=== PATIENT | female | born 1950 | race Caucasian/White ===

== ENCOUNTER 2021-03-01 16:40 | Observation (INO) | payer OTHER ==
[~2021-03-01] VITALS: Ht 167.6 cm; Wt 113.3 kg
[~2021-03-01 16:40] MED LIST: ACTO15TA6 PO; ASPI325T5 PO; CLOP75TA2 PO; GABA250S PO; GLUC10TA3 PO; IBUP80TA PO; LISI20TA3 PO; LOPR50TA PO; MECL12.575 PO; METF850T PO; NORV2TAB PO; POLY1POW4 PO; PRAV40TA PO; TRAZ100T2 PO
[2021-03-01] MEDS ORDERED: methylPREDNISolone 125MG 2ML VIAL IV ONE (16:55)
[2021-03-01] MEDS: COMBIVENT RESPIMAT 100-20MCG INHALER 4GM INH SCH ×3 (17:03→17:57)
[2021-03-01] MEDS ORDERED: FUROSEMIDE 40MG/4ML VIAL (J1940) IV ONE (17:20)
--- NOTE | 2021-03-01 17:30 | REP ---
INDICATION: DYSPNEA/COUGH. COMPARISON: Portable chest dated 10/06/2012. TECHNIQUE: Portable AP chest with the patient upright. FINDINGS: There are sternotomy wires as an interval change. Cardiac size is enlarged and has increased. There is diffuse bilateral interstitial coarsening appearing worsened from the comparison study. There are no focal infiltrates or pleural effusions. IMPRESSION: Worsening interstitial coarsening. This is nonspecific and could represent progressive interstitial lung disease or interstitial infiltrates. Cardiomegaly that has increased. Sternotomy wires, not present previously. <Electronically signed by Jono Stark > 03/01/21 [id number]
[2021-03-01 17:39] LABS: BASO # 0.1 10^3/uL (0.0-0.2); BASO % 0.7 % (0.0-1.0); HEMATOCRIT 34.3 % (36.0-47.0); HEMOGLOBIN 10.5 g/dl (12.0-15.5); LYMPH # 1.2 10^3/uL (1.5-5.0); LYMPH % 13.7 % (24.0-44.0); MEAN CORPUSCULAR HEMOGLOBIN 28.8 pg (27.0-33.0); MEAN CORPUSCULAR HGB CONC 30.6 g/dl (32.0-36.5); MONO # 0.5 10^3/uL (0.0-0.8); MONO % 5.9 % (2.0-8.0); NEUTROPHILS # 6.9 10^3/uL (1.5-8.5); NEUTROPHILS % 79.4 % (36.0-66.0); PLATELET COUNT, AUTOMATED 199 10^3/uL (150-450); RED BLOOD COUNT 3.65 10^6/uL (4.00-5.40); WHITE BLOOD COUNT 8.7 10^3/uL (4.0-10.0)
[2021-03-01] MEDS ORDERED: ATOR80TA59 PO (18:01)
[2021-03-01] MEDS ORDERED: NOVOINJ3 SC (18:01)
[2021-03-01] MEDS ORDERED: LANTINJ4 SC (18:01)
[2021-03-01] MEDS ORDERED: CLOP75TA2 PO (18:01)
[2021-03-01] MEDS ORDERED: ISOS1TAB35 PO (18:01)
[2021-03-01] MEDS ORDERED: FURO40TA2 PO (18:02)
[2021-03-01] MEDS ORDERED: NIFE60TA40 PO (18:02)
[2021-03-01] MEDS ORDERED: LEVO100T5 PO (18:02)
[2021-03-01] MEDS ORDERED: SPIR-10 PO (18:02)
[2021-03-01 18:10] LABS: ALBUMIN 3.8 GM/DL (3.2-5.2); ALT/SGPT 15 U/L (12-78); BILIRUBIN,DIRECT 0.1 MG/DL (0.0-0.2); BILIRUBIN,TOTAL 0.4 MG/DL (0.2-1.0); CK-MB VALUE MASS 2.6 NG/ML (<3.6); CPK CREATINE PHOSPHOKINASE 89 U/L (26-192); MB/CK RELATIVE INDEX 2.92 (< OR =4); NT-PRO BNP 1902 PG/ML (<125); THYROXINE (T4) 9.9 UG/DL (4.5-12.0); TOTAL PROTEIN 7.6 GM/DL (6.4-8.2); TROPONIN I < 0.02 NG/ML (< 0.10)
[2021-03-01] MEDS ORDERED: ALBU83IN (18:59)
[2021-03-01] MEDS ORDERED: LISI40TA4 PO (18:59)
[2021-03-01] MEDS ORDERED: THEO300T33 PO (18:59)
[2021-03-01] MEDS ORDERED: MECL-136 PO (18:59)
[2021-03-01] MEDS ORDERED: ASPI81TA26 PO (18:59)
[2021-03-01] MEDS ORDERED: TOPR100T PO (18:59)
[2021-03-01] MEDS ORDERED: GABA-282 PO (18:59)
[2021-03-01] MEDS ORDERED: FUROSEMIDE 100MG/10ML VIAL (J1940) IV ONE (19:05)
--- NOTE | 2021-03-01 19:32 | ECGEPIP ---
[facility] - ED Test Date: 2021-03-01 Pat Name: KASSIE CHAN Department: Room: - Gender: Female Recreation Adviser: BRENDEN : 1950 Requested By: Miguelito Nova Order Number: [id number] Reading MD: Miguelito Nova Measurements Intervals [place] Rate: 76 P: 93 GA: 162 QRS: 27 QRSD: 134 T: 77 QT: 406 QTc: 456 Interpretive Statements Normal sinus rhythm Indeterminate axis Right bundle branch block Baseline artifact may affect reading Baseline wandering may affect reading Nonspecific ST T wave changes No prior ECG for comparison Electronically Signed on 03-01-2021 19:32:25 EDT by Miguelito Nova
[2021-03-01] MEDS ORDERED: ACETAMINOPHEN TAB 650MG DOSE (2X325MG) PO PRN (19:40)
[2021-03-01] MEDS ORDERED: MECLIZINE 12.5 MG TAB PO PRN (19:40)
[2021-03-01] MEDS ORDERED: MAALOX 30 ML SUSP *UDC PO PRN (19:40)
[2021-03-01] MEDS ORDERED: MOM 30ML SUSPENSION UDC PO PRN (19:40)
[2021-03-01] MEDS ORDERED: GLUCOSE 4GM CHEW TABLET PO PRN (19:50)
[2021-03-01] MEDS ORDERED: GLUCAGON INJ 1MG VIAL SC PRN (19:50)
[2021-03-01] MEDS ORDERED: DEXTROSE 50% 50 ML SYRINGE IV PRN (19:50)
[2021-03-01] MEDS ORDERED: COMBIVENT RESPIMAT 100-20MCG INHALER 4GM INH PRN (20:00)
--- NOTE | 2021-03-01 20:46 | HPEPDOC ---
[facility] Medical History & Physical Date of Admission Mar 01, 2021 Date of Service: Mar 01, 2021 Attending Physician: TEODORA SHAW MD History and Physical CHIEF COMPLAINT: [70 year old female presents with cc of SOB x4 days] HISTORY OF PRESENT ILLNESS: [This is a 70 year old female with a PMH of CVA with right sided residual weakness, PE, COPD, CHF, CAD s/p CABG, IDDM, dyslipidemia, and HTN who presents to the ER with a complaint of acute onset SOB. Patient states that she is in from out of town for the weekend to visit family but her symptoms began before she bagan traveling. Patient states that her main complaint is extreme shortness of breath even at rest. Patient states that she has had a rapid decline of activity intolerance over the past four days. Patient admits to some chest tightness when she gets particularly short of breath. Patient states that she did not initally think that her symptoms were from her CHF or COPD but rather from a cold because she had some mild congestion for a few days prior to her SOB developing. Patient is on 4L oxygen via nasal canula at home. Patient denies chest pain, cough, sputum production, syncope, abd pain, n/v/d, dysuria, fever, chills Patient briefly placed on bipap while in the ED. As of my examination of patient, she was breathing and having good saturation on her baseline 4L nasal canula.] PAST MEDICAL HISTORY: 1. [See HPI PAST SURGICAL HISTORY: 1. [CABG]. 2. [Hysterectomy]. 3. [Cholecystectomy ]. SOCIAL HISTORY: Marital status: []. Resides in: [Home with ] Employment: [Retired] Tobacco use:[No] ETOH: [No] Illicit drug use: [No] ALLERGIES: Please see below. REVIEW OF SYSTEMS: CONSTITUTIONAL: [See HPI]. HEENT: [See HPI]. CARDIOVASCULAR: [See HPI]. RESPIRATORY: [See HPI]. GASTROINTESTINAL: [See HPI]. GENITOURINARY: [See HPI]. SKIN: [Denies rash]. MUSCULOSKELETAL: [Denies acute joint pain]. NEUROLOGICAL: [See HPI]. HOME MEDICATIONS: Please see below. PHYSICAL EXAMINATION: VITAL SIGNS: Please see below GENERAL APPEARANCE: [This is a 70 year old female who appears in mild distress. She has to catch her breath at times during the interview and exam]. HEENT: [The mass or lesion. EOMI. No scleral icterus or conjunctival erythema. Nares patent. Oral mucosa moist]. CARDIOVASCULAR: [Slightly tachy rate, regular rhythm. No murmurs, rubs or gallops]. LUNGS: [B/l wheezing and crackles heard throughout.]. ABDOMEN: [Soft, non-tender]. MUSCULOSKELETAL: [No joint deformity]. EXTREMITIES: [Lower extremities edematous with mild darkening of the skin b/l. Pulses intact. No clubbing, cyanosis.]. NEUROLOGICAL: [Patient's right sided weakness present. Speech clear. A+Ox3.]. PSYCHIATRIC: [Mood and affect appear appropriate]. LABORATORY DATA: See below. IMAGING: [Chest x-ray: FINDINGS: There are sternotomy wires as an interval change. Cardiac size is enlarged and has increased. There is diffuse bilateral interstitial coarsening appearing worsened from the comparison study. There are no focal infiltrates or pleural effusions. IMPRESSION: Worsening interstitial coarsening. This is nonspecific and could represent progressive interstitial lung disease or interstitial infiltrates. Cardiomegaly that has increased. Sternotomy wires, not present previously.] MICROBIOLOGY: Please see below. ASSESSMENT: [This is a 70 year old female with a pmh of CVA with right sided res idual weakness, PE, COPD, CHF, CAD s/p CABG, IDDM, dyslipidemia, and HTN who presents to the ER with a complaint of acute onset SOB. Patient at the time of my exam seems to be breathing more comfortably after ED administration of bipap, solumedrol and lasix. Patient states to me that her only real complaint is her shortness of breath, and if that were to resolve, she would feel fine. Patient found in the ED to have elevated BNP, no white count, no fevers, no signs of systemic infection ]. . PLAN: 1. [CHF Exacerbation - Perhaps brought on post viral. Patient found negative for COVID in ED. Seems most likely diagnosis at this time as patient appears to be fluid overloaded, has elevated bnp, and main complaint of sob. - Patient received two doses of lasix in the ED, totalling 100mg - Will continue lisinopril, spironolactone, lasix, metoprolol - Patient on four medications and now hospitalized, can consider switching JOSE to arb/sacubitril - continue oxygen therapy - CTA chest, venous duplex of legs ordered - No IVF at this time - Will repeat echo 2. COPD]. - Strong possibility that COPD is adding to patient's sob creating mixed picture. At this time, primary copd exacerbation seems less likely as patient is experiencing no sputum production and is obviously fluid overloaded. - Continue theophylline - Begin combivent - Continue oxygen therapy 3. CVA - continue asa, plavix 4. IDDM - Continue basal insulin - Standard sliding scale while in hospital - consistent carb diet 5.CAD - continue isosorbide 6.Dyslipidemia - continue atorvastatin 7. HTN - Continuing heart failure medications, which also impact blood pressure - Upon admission to ED, patient was found in hypertensive urgency, so will monitor closely - holding at home nicardipine 8. DVT Prophylaxis - heparin ordered PATIENT WISHES TO BE DNI, STILL WANTS COMPRESSIONS Vital Signs Vital Signs Date Time Temp Pulse Resp B/P (MAP) Pulse Ox O2 Delivery O2 Flow Rate FiO2 03/01/21 19:07 85 21 96 Nasal Cannula 4.0 03/01/21 18:54 158/72 (100) 03/01/21 17:26 97.5 03/01/21 17:22 30 Laboratory Data Labs 24H Laboratory Tests 2 03/01/21 16:48: Immature Granulocyte % (Auto) 0.3, Neutrophils (%) (Auto) 79.4H, Lymphocytes (%) (Auto) 13.7L, Monocytes (%) (Auto) 5.9, Eosinophils (%) (Auto) 0.0, Basophils (%) (Auto) 0.7, Neutrophils # (Auto) 6.9, Lymphocytes # (Auto) 1.2L, Monocytes # (Auto) 0.5, Eosinophils # (Auto) 0.0, Basophils # (Auto) 0.1, Nucleated Red Blood Cells % (auto) 0.0, Lactic Acid Level 1.8, Total Bilirubin 0.4, Direct Bilirubin 0.1, Aspartate Amino Transf (AST/SGOT) 14, Alanine Aminotransferase (ALT/SGPT) 15, Alkaline Phosphatase 113, Total Creatine Kinase 89, Creatine Ki nase MB 2.6, Creatine Kinase MB Relative Index 2.92, Troponin I < 0.02, FV-Nqg-N-Type Natriuretic Peptide 1902H, Total Protein 7.6, Albumin 3.8, Albumin/Globulin Ratio 1.0L, Thyroid Stimulating Hormone (TSH) 1.820, Thyroxine (T4) 9.9 03/01/21 17:10: POC pH (Misc Panel) 7.351, POC Base Excess (Misc Panel) 7.0H, POC Saturated Percent O2 (Misc) 93L, POC pO2 (Misc Panel) 74.0L, POC pCO2 (Misc Panel) 58.7H, POC HCO3 (Misc Panel) 32.5H, POC Total CO2 (Misc Panel) 34.0H 03/01/21 17:21: POC Troponin I (Misc) 0.00 03/01/21 17:24: POC Total CO2 (Misc Panel) 32.0H, POC Glucose (Misc Panel) 364H, POC Sodium (Misc Panel) 139, POC Potassium (Misc Panel) 4.6, POC Chloride (Misc Panel) 97L, POC Blood Urea Nitrogen (Misc Panel 23, POC Ionized Calcium (Misc Panel) 4.8, POC Creatinine (Misc Panel) 1.2, POC Hematocrit (Misc Panel) 35.0L 03/01/21 18:53: POC pH (Misc Panel) 7.442, POC Base Excess (Misc Panel) 10.0H, POC Saturated Percent O2 (Misc) 97, POC pO2 (Misc Panel) 85.0, POC pCO2 (Misc Panel) 50.0H, POC HCO3 (Misc Panel) 34.1H, POC Total CO2 (Misc Panel) 36.0H CBC/BMP Laboratory Tests 03/01/21 16:48 Microbiology Microbiology 03/01/21 Blood Culture, Received Pending 03/01/21 Respiratory Virus Panel (PCR) (KY[facility]) - Final, Complete 03/01/21 Blood Culture, Received Pending Home Medications Scheduled Aspirin (Aspirin EC) 81 Mg Tablet.dr, 81 MG PO DAILY Atorvastatin Calcium (Atorvastatin Calcium) 80 Mg Tablet, 80 MG PO QHS Clopidogrel Bisulfate (Clopidogrel) 75 Mg Tablet, 75 MG PO DAILY Furosemide (Furosemide) 40 Mg Tablet, 40 MG PO DAILY Gabapentin (Gabapentin) 300 Mg Capsule, 300 MG PO TID Insulin Aspart (Novolog Flexpen) 100 Unit/1 Ml Insuln.pen, 1 DOSE SC ACHS per sliding scale Insulin Glargine,Hum.rec.anlog (Lantus Solostar) 100 Unit/1 Ml Insuln.pen, 15 UNITS SC QHS Isosorbide Mononitrate (Isosorbide Mononitrate ER) 30 Mg Tab.er.24h, 30 MG PO DAILY Levothyroxine Sodium (Levothyroxine Sodium) 100 Mcg Tablet, 100 MCG PO DAILY Lisinopril (Lisinopril) 40 Mg Tablet, 40 MG PO DAILY Metoprolol Succinate (Toprol Xl) 100 Mg Tab.er.24h, 100 MG PO DAILY Nifedipine (Nifedipine ER) 60 Mg Tablet.er, 60 MG PO DAILY Spironolactone (Spironolactone) 25 Mg Tablet, 12.5 MG PO DAILY Theophylline Anhydrous (Theophylline Anhydrous) 300 Mg Tab.er.12h, 300 MG PO DAILY Scheduled PRN Meclizine HCl (Meclizine HCl) 12.5 Mg Tablet, 12.5 MG PO TID PRN for DIZZINESS Miscellaneous Medications Albuterol Sulf (Albuterol Sulfate) 2.5 Mg/3 Ml Vial.neb, 1 VIAL Allergies Coded Allergies: Penicillins (Verified Allergy, Unknown, 03/01/21) codeine (Verified Allergy, Unknown, 03/01/21) A-FIB/CHADSVASC A-FIB History Current/History of A-Fib/PAF?: No URMILA CALDERON Mar 01, 2021 20:46
[2021-03-01] MEDS: HEPARIN SOD (PORCINE) 5000UNITS/ML 1ML VIAL/SYRINGE SC SCH (20:55)
[2021-03-01] MEDS ORDERED: HumaLOG INSULIN (NovoLOG) PER UNIT SC SCH (21:00)
[2021-03-01] MEDS ORDERED: ATORVASTATIN 20 MG TAB PO SCH (21:00)
[2021-03-01] MEDS ORDERED: LEVEMIR (INSULIN DETEMIR) 1 UNITS/0.01ML SC SCH (21:00)
[2021-03-01] MEDS ORDERED: ISOVUE-370 76% 100ML VIAL As Ordered ONE (21:10)
[2021-03-01] MEDS: DOCUSATE SODIUM 100MG CAPSULE PO SCH (21:57)
[2021-03-01] MEDS: GABAPENTIN 300 MG CAP PO SCH (21:57)
--- NOTE | 2021-03-01 22:19 | REPVR ---
PROCEDURE INFORMATION: Exam: US Duplex Lower Extremity Veins, Bilateral Exam date and time: 03/01/2021 10:00 PM Age: 70 years old Clinical indication: Edema, localized; Lower extremity, bilateral TECHNIQUE: Imaging protocol: Real-time duplex ultrasound of the extremities with 2-D reynolds scale, color Doppler flow and spectral waveform analysis with image documentation. Complete exam focused on the bilateral lower extremity veins. COMPARISON: No relevant prior studies available. FINDINGS: Right deep veins: Unremarkable. The common femoral, femoral and popliteal veins are patent without thrombus. Normal Doppler waveforms. Normal compressibility and/or augmentation response. Right superficial veins: Saphenofemoral junction is patent without thrombus. Left deep veins: Unremarkable. The common femoral, femoral and popliteal veins are patent without thrombus. Normal Doppler waveforms. Normal compressibility and/or augmentation response. Left superficial veins: Saphenofemoral junction is patent without thrombus. Soft tissues: Unremarkable. IMPRESSION: No sonographic evidence of deep vein thrombosis. Electronically signed by: Bam Zeng On 03/01/2021 22:20:02 PM
--- NOTE | 2021-03-01 22:35 | REPVR ---
PROCEDURE INFORMATION: Exam: CTA Chest With Contrast Exam date and time: 03/01/2021 9:23 PM Age: 70 years old Clinical indication: Shortness of breath; Additional info: SOB TECHNIQUE: Imaging protocol: Computed tomographic angiography of the chest with contrast. 3D rendering (Not supervised by radiologist): MIP and/or 3D reconstructed images were created by the technologist. Radiation optimization: All CT scans at this facility use at least one of these dose optimization techniques: automated exposure control; mA and/or kV adjustment per patient size (includes targeted exams where dose is matched to clinical indication); or iterative reconstruction. Contrast material: ISOVUE 370; Contrast volume: 75 ml; Contrast route: INTRAVENOUS (IV); COMPARISON: IN PORTABLE CHEST X-RAY 03/01/2021 4:58 PM FINDINGS: Pulmonary arteries: Contrast opacification satisfactory. No intraluminal filling defect. Aorta: Moderate to severe atherosclerotic disease. No aneurysm or dissection. Lungs: Mild central peribronchial thickening, suggestive of airway inflammation. Patchy areas of subtle ground-glass infiltration with associated septal thickening, suggestive of mild edema. Mild subsegmental consolidation at the left greater than right lung bases, likely secondary to atelectasis. Pleural spaces: Small left greater than right pleural effusions, somewhat loculated on the right. No pneumothorax. Heart: Mild cardiomegaly. No pericardial effusion. Evidence of open heart surgery. Lymph nodes: Small mediastinal lymph nodes, nonspecific in appearance. No pathologically enlarged lymph nodes. Bones/joints: No acute osseous abnormality. Osteopenia. Degenerative changes. Soft tissues: Unremarkable. IMPRESSION: 1. No CT evidence of pulmonary embolism. 2. Cardiomegaly, small pleural effusions and findings suggestive of mild edema. 3. Additional findings, as above. Electronically signed by: Bam Zeng On 03/01/2021 22:35:57 PM
[2021-03-01 22:39] VITALS: BP 210/74
[2021-03-02 01:40] VITALS: BP 180/72
[2021-03-02] MEDS ORDERED: CAPTOpril 3.125 MG PER 1/4 TABLET PO ONE ×2 (02:00)
[2021-03-02 03:31] VITALS: O2SAT 96
[2021-03-02] MEDS: HEPARIN SOD (PORCINE) 5000UNITS/ML 1ML VIAL/SYRINGE SC SCH ×2 (03:45→12:00)
[2021-03-02 06:00] VITALS: BP 172/74
[2021-03-02] MEDS ORDERED: LEVOTHYROXINE 100MCG TABLET (0.1MG) PO SCH (06:00)
[2021-03-02] MEDS ORDERED: FUROSEMIDE 40MG/4ML VIAL (J1940) IV SCH (06:00)
[2021-03-02 06:38] LABS: HEMATOCRIT 31.1 % (36.0-47.0); HEMOGLOBIN 9.8 g/dl (12.0-15.5); MEAN CORPUSCULAR HEMOGLOBIN 28.7 pg (27.0-33.0); MEAN CORPUSCULAR HGB CONC 31.5 g/dl (32.0-36.5); MEAN CORPUSCULAR VOLUME 91.2 fl (80.0-96.0); PLATELET COUNT, AUTOMATED 185 10^3/uL (150-450); RED BLOOD COUNT 3.41 10^6/uL (4.00-5.40); WHITE BLOOD COUNT 11.3 10^3/uL (4.0-10.0)
[2021-03-02 07:06] LABS: CALCIUM LEVEL 9.1 MG/DL (8.8-10.2); CREATININE FOR GFR 1.13 MG/DL (0.55-1.30); GLOMERULAR FILTRATION RATE 50.7 (>39); MAGNESIUM LEVEL 1.8 MG/DL (1.8-2.4); POTASSIUM SERUM 3.9 MEQ/L (3.5-5.1)
[2021-03-02] MEDS: HumaLOG INSULIN (NovoLOG) PER UNIT SC SCH ×2 (08:36→12:59)
[2021-03-02 08:38] VITALS: O2SAT 94
[2021-03-02] MEDS: DOCUSATE SODIUM 100MG CAPSULE PO SCH (08:38)
[2021-03-02] MEDS: GABAPENTIN 300 MG CAP PO SCH (08:38)
[2021-03-02 08:41] VITALS: BP 184/78
[2021-03-02] MEDS ORDERED: ISOSORBIDE MON. (IMDUR) 30 MG XR TAB PO SCH (09:00)
[2021-03-02] MEDS ORDERED: THEOPHYLLINE (THEO-24) 100MG SR **CAPSULE PO SCH (09:00)
[2021-03-02] MEDS ORDERED: ASPIRIN 81MG ENTERIC TABLET PO SCH (09:00)
[2021-03-02] MEDS ORDERED: CLOPIDOGREL 75 MG TAB PO SCH (09:00)
[2021-03-02] MEDS ORDERED: FUROSEMIDE 40 MG TAB PO SCH (09:00)
[2021-03-02] MEDS ORDERED: METOPROLOL SUCC (TopROL XL) 100MG *XL* TAB PO SCH (09:00)
[2021-03-02] MEDS ORDERED: lisinopriL 40 MG TAB PO SCH (09:00)
[2021-03-02] MEDS ORDERED: SPIRONOLACTONE 25 MG TAB PO SCH (09:00)
--- NOTE | 2021-03-02 11:21 | DS.PDOC ---
Discharge Summary General Date of Admission Mar 01, 2021 at 16:41 Date of Discharge Mar 02, 2021. Attending Physician: SILVANO BOWLES MD Discharge Summary Addendum (03/05/21): Pt had a one out of two blood cultures return back positive for Staphylococcus hominis species. This is likely a contaminant and no further action is required. PROCEDURES PERFORMED DURING STAY: None. ADMITTING DIAGNOSES: 1. CHF Exacerbation. 2. COPD. 3. CVA. 4. IDDM. 5. CAD. 6. Dyslipidemia. 7. HTN. DISCHARGE DIAGNOSES: 1. CHF Exacerbation. 2. COPD. 3. IDDM. 4. Hx of CVA. 5. CAD. 6. Dyslipidemia. 7. HTN. COMPLICATIONS/CHIEF COMPLAINT: Chf/Copd Exacerbation. HISTORY OF PRESENT ILLNESS: This is a 70 year old female with a PMH of CVA with right sided residual w eakness, PE, COPD, CHF, CAD s/p CABG, IDDM, dyslipidemia, and HTN who presents to the ER with complaint of acute SOB. On 02/20/21, pt received her second dose of the COVID vaccination. The following Tuesday, she developed congestion and thought she "caught something". This past Tuesday, pt states that she developed SOB. This SOB progressively worsened and she eventually had SOB at rest and has been intolerant to her normal day to day activities. She is from out of town and is currently visiting her family and her sx began prior to traveling. She denies any known exposures to COVID or sick contacts. She is usually on 4 L oxygen via nasal canula at home for her COPD. Patient denied any chest pain, cough, sputum production, syncope, abd pain, n/v/d, dysuria, fever, chills. In the ED, pt was briefly placed on BIPAP. She was reported to be breathing comfortably and having good saturation on her baseline 4L nasal canula in the ED. HOSPITAL COURSE: Overnight, pt had no acute events. She states that she has had similar sx when she was dx with a PE. PE has been ruled out during pt stay with negative CTA. She states that she has recently had increased fluid intake and has not been following a low sodium diet due to the . Pt reports that she is feeling much better and would like to go home and follow up with her PCP. During her stay, pt was given Lasix 40 mg IV Q12H. She had a net negative fluid status with output of about 3L in 24 hrs. She had a 3.5 kg weight loss since admission yesterday. Her CTA was negative for PE and showed some pleural effusions. Believe these pleural effusions are likely 2/2 fluid overload due to increased sodium and fluid intake. Pt is back to her baseline and is sating at 96% on 4 L nasal cannula. DISCHARGE MEDICATIONS: Please see below. ALLERGIES: Please see below. PHYSICAL EXAMINATION ON DISCHARGE: VITAL SIGNS: Please see below. GENERAL: Pt is sitting comfortably at rest. No acute distress. HEENT: NC/AT. EOMI. Conjunctiva and lids normal. CARDIOVASCULAR EXAMINATION: Regular rate and rhythm. Nl S1/S2. No murmurs, rubs, or gallops appreciated. RESPIRATORY EXAMINATION: Lungs clear to auscultation bilaterally. No wheezes, rales, or rhonchi appreciated. ABDOMINAL EXAMINATION: Soft and non-tender to palpation. No guarding or rebound. Normoactive bowel sounds in all four quadrants. EXTREMITIES: 2+ pitting edema to BLE up to knees. SKIN: Venous stasis discoloration to anterior shins bilaterally. NEUROLOGICAL EXAMINATION: Alert and oriented. No focal neurological deficits appreciated. PSYCHIATRIC EXAMINATION: Normal tone and affect. LABORATORY DATA: Please see below. IMAGING: CXR (03/01/21) Worsening interstitial coarsening. This is nonspecific and could represent progressive interstitial lung disease or interstitial infiltrates. Cardiomegaly that has increased. Sternotomy wires, not previously present. Vascular US (03/01/21) No sonographic evidence of deep vein thrombosis. CTA Chest (03/01/21) 1. No CT evidence of pulmonary embolism. 2. Cardiomegaly, small pleural effusions and findings suggestive of mild edema. 3. Additional findings, as above. PROGNOSIS: Fair ACTIVITY: As tolerated. DIET: 2g sodium diet. Fluid restrictions. DISCHARGE PLAN: Discharge home. DISCHARGE INSTRUCTIONS: 1. Continue taking home medications as prescribed. 2. Follow up with PCP in 3-5 days. 3. Follow up with your butcher apprentice. 4. Return to ED if sx worsen or return. ITEMS TO FOLLOWUP ON ON OUTPATIENT: 1. Follow up with PCP in 3-5 days. 2. Follow up with your butcher apprentice. DISCHARGE CONDITION: Stable. TIME SPENT ON DISCHARGE: Greater than 35 minutes. Vital Signs/I&Os Vital Signs Date Time Temp Pulse Resp B/P (MAP) Pulse Ox O2 Delivery O2 Flow Rate FiO2 03/02/21 08:46 94 Nasal Cannula 2.0 03/02/21 08:41 83 184/78 03/02/21 06:00 97.6 22 03/01/21 17:22 30 I&O- Last 24 Hours up to 6 AM 03/02/21 06:00 Intake Total 540 ml Output Total 3000 ml Balance -2460 ml Laboratory Data Labs 24H Laboratory Tests 2 03/01/21 16:48: Immature Granulocyte % (Auto) 0.3, Neutrophils (%) (Auto) 79.4H, Lymphocytes (%) (Auto) 13.7L, Monocytes (%) (Auto) 5.9, Eosinophils (%) (Auto) 0.0, Basophils (%) (Auto) 0.7, Neutrophils # (Auto) 6.9, Lymphocytes # (Auto) 1.2L, Monocytes # (Auto) 0.5, Eosinophils # (Auto) 0.0, Basophils # (Auto) 0.1, Nucleated Red Blood Cells % (auto) 0.0, Lactic Acid Level 1.8, Total Bilirubin 0.4, Direct Bilirubin 0.1, Aspartate Amino Transf (AST/SGOT) 14, Alanine Aminotransferase (ALT/SGPT) 15, Alkaline Phosphatase 113, Total Creatine Kinase 89, Creatine Kinase MB 2.6, Creatine Kinase MB Relative Index 2.92, Troponin I < 0.02, CU-Nrz-[id number]-Type Natriuretic Peptide 1902H, Total Protein 7.6, Albumin 3.8, Albumin/Globulin Ratio 1.0L, Thyroid Stimulating Hormone (TSH) 1.820, Thyroxine (T4) 9.9 03/01/21 17:10: POC pH (Misc Panel) 7.351, POC Base Excess (Misc Panel) 7.0H, POC Saturated Percent O2 (Misc) 93L, POC pO2 (Misc Panel) 74.0L, POC pCO2 (Misc Panel) 58.7H, POC HCO3 (Misc Panel) 32.5H, POC Total CO2 (Misc Panel) 34.0H 03/01/21 17:21: POC Troponin I (Misc) 0.00 03/01/21 17:24: POC Total CO2 (Misc Panel) 32.0H, POC Glucose (Misc Panel) 364H, POC Sodium (Misc Panel) 139, POC Potassium (Misc Panel) 4.6, POC Chloride (Misc Panel) 97L, POC Blood Urea Nitrogen (Misc Panel 23, POC Ionized Calcium (Misc Panel) 4.8, POC Creatinine (Misc Panel) 1.2, POC Hematocrit (Misc Panel) 35.0L 03/01/21 18:53: POC pH (Misc Panel) 7.442, POC Base Excess (Misc Panel) 10.0H, POC Saturated Percent O2 (Misc) 97, POC pO2 (Misc Panel) 85.0, POC pCO2 (Misc Panel) 50.0H, POC HCO3 (Misc Panel) 34.1H, POC Total CO2 (Misc Panel) 36.0H 03/01/21 21:31: Bedside Glucose (Misc Panel) 412H 03/02/21 05:55: Nucleated Red Blood Cells % (auto) 0.0, Anion Gap 5L, Glomerular Filtration Rate 50.7, Calcium Level 9.1, Magnesium Level 1.8, ZP-Zxo-D-Type Natriuretic Peptide 2379H CBC/BMP Laboratory Tests 03/01/21 16:48 03/02/21 05:55 FSBS Laboratory Tests Test 03/01/21 21:31 Range/Units Bedside Glucose (Misc Panel) 412 83-110 MG/DL Microbiology Microbiology 03/01/21 Blood Culture, Received Pending 03/01/21 Respiratory Virus Panel (PCR) ([facility]) - Final, Complete 03/01/21 Blood Culture, Received Pending Discharge Medications Scheduled Aspirin (Aspirin EC) 81 Mg Tablet.dr, 81 MG PO DAILY, (Reported) Atorvastatin Calcium (Atorvastatin Calcium) 80 Mg Tablet, 80 MG PO QHS, (Reported) Clopidogrel Bisulfate (Clopidogrel) 75 Mg Tablet, 75 MG PO DAILY, (Reported) Furosemide (Furosemide) 40 Mg Tablet, 40 MG PO DAILY, (Reported) Gabapentin (Gabapentin) 300 Mg Capsule, 300 MG PO TID, (Reported) Insulin Aspart (Novolog Flexpen) 100 Unit/1 Ml Insuln.pen, 1 DOSE SC ACHS, (Reported) per sliding scale Insulin Glargine,Hum.rec.anlog (Lantus Solostar) 100 Unit/1 Ml Insuln.pen, 15 UNITS SC QHS, (Reported) Isosorbide Mononitrate (Isosorbide Mononitrate ER) 30 Mg Tab.er.24h, 30 MG PO DAILY, (Reported) Levothyroxine Sodium (Levothyroxine Sodium) 100 Mcg Tablet, 100 MCG PO DAILY, (Reported) Lisinopril (Lisinopril) 40 Mg Tablet, 40 MG PO DAILY, (Reported) Metoprolol Succinate (Toprol Xl) 100 Mg Tab.er.24h, 100 MG PO DAILY, (Reported) Nifedipine (Nifedipine ER) 60 Mg Tablet.er, 60 MG PO DAILY, (Reported) Spironolactone (Spironolactone) 25 Mg Tablet, 12.5 MG PO DAILY, (Reported) Theophylline Anhydrous (Theophylline Anhydrous) 300 Mg Tab.er.12h, 300 MG PO DAILY, (Reported) Scheduled PRN Meclizine HCl (Meclizine HCl) 12.5 Mg Tablet, 12.5 MG PO TID PRN for DIZZINESS, (Reported) Miscellaneous Medications Albuterol Sulf (Albuterol Sulfate) 2.5 Mg/3 Ml Vial.neb, 1 VIAL, (Reported) Allergies Coded Allergies: Penicillins (Verified Allergy, Unknown, 03/01/21) codeine (Verified Allergy, Unknown, 03/01/21) GME ATTESTATION GME ATTESTATION My faculty preceptor for this patient encounter was physically present during the encounter and was fully available. All aspects of the patient interview, examination, medical decision making process, and medical care plan development were reviewed and approved by the faculty preceptor. The faculty preceptor is aware and concurs with the plan as stated in the body of this note and will attest to such by his/her cosignature. ATTENDING NOTE I, Silvano Bowles MD, have independently examined this patient and performed my own physical exam, as well as reviewed the documentation and edited where necessary. I have discussed in detail with the resident / student the findings and plan of treatment as documented by the resident / student and edited their note. I agree with their findings and treatment plan and have edited their documentation. Total time spent on this patient including coordination of care, review of chart documentation and actual patient contact is around 40 minutes [employer] WHEELER S-3 Mar 02, 2021 11:21 SILVANO BOWLES MD Mar 06, 2021 14:56
[2021-03-02 14:00] VITALS: BP 162/86
[2021-03-03] MEDS ORDERED: FLUBLOK(EGG FREE)(QUAD)INFLUENZA VACC 0.5ML SYRINGE 18YRS & OLDER IM ONE (09:00)
== END 2021-03-02 15:55 | disposition home or self-care (01) ==
LOC: M ED 16:40 → M ED INP 16:41 → ENRESERV 21:49 → M MSPAV 22:40
PROVIDERS: ADMIT Family Medicine; ATTEND Internal Medicine
DX: I50.9 Heart failure, unspecified (principal); J44.9 Chronic obstructive pulmonary disease, unspecified; Z86.73 Personal history of transient ischemic attack (TIA), and cerebral infarction without residual deficits; E11.9 Type 2 diabetes mellitus without complications; I25.10 Atherosclerotic heart disease of native coronary artery without angina pectoris; E78.49 Other hyperlipidemia; I11.0 Hypertensive heart disease with heart failure; Z86.711 Personal history of pulmonary embolism; Z95.1 Presence of aortocoronary bypass graft; Z79.82 Long term (current) use of aspirin; Z79.02 Long term (current) use of antithrombotics/antiplatelets; Z79.899 Other long term (current) drug therapy; Z79.4 Long term (current) use of insulin; Z88.0 Allergy status to penicillin
CPT/HCPCS: 36415; 36600; 71045; 71275; 80047; 80048; 80076; 82550; 82553; 82803; 83605; 83735; 83880; 84436; 84443; 84484; 85025; 85027; 87040; 87077; 87186; 87798; 93005; 93041; 93970; 94640; 94660; 94760; 96374; 96375; 96376; 99285; J1644; J1940; J2930; Q9967